=== PATIENT | female | born 2000 | race Caucasian/White ===

== ENCOUNTER 2023-01-11 18:54 | Emergency (ER) | payer OTHER, SELFPAY ==
[2023-01-11 19:04] VITALS: BP 135/84; PULSE 97; RESP 20; TEMP 36.5; O2SAT 100
[2023-01-11 19:50] LABS: Appearance Urine Clear (Clear); Bacteria Urine None Seen /hpf; Bilirubin Urine Negative (Negative); Blood Urine 3+ (Negative); Color Urine Yellow (Yellow); Glucose Urine UA Negative (Negative); Ketones Urine 1+ mg/dL (Negative); Leukocyte Esterase Ur Trace LEU/UL (Negative); Nitrate Urine Negative (Negative); Non Pathogenic Casts 0-2; Protein Urine Negative (Negative); RBC Urine >100 /hpf (0-2); Specific Grav Ur 1.017 (1.001-1.035); Squamous Epithelial Cell Urine Occasional /hpf (Few); Urobilinogen Urine 0.2 mg/dL (<2.0); WBC Urine 0-5 /hpf
[2023-01-11 19:52] LABS: Add Urine Microscopic? YES
[2023-01-11 20:13] LABS: Basophils Percent Auto 0.6 % (0.2-1.2); Eosinophils Percent Auto 0.4 % (0-4.4); Hematocrit 40.5 % (37.0-47.0); Hemoglobin 13.5 g/dL (12.0-15.0); Immature Granulocyte Absolute 0.01 K/mm3 (0.00-0.031); Immature Granulocyte Percent A 0.2 % (0-0.5); Lymphocytes Absolute Auto 1.69 K/mm3 (0.9-3.2); Lymphocytes Percent Auto 34.9 % (18.3-44.2); Mean Corpuscular HGB Conc 33.3 g/dl (32-36); Mean Corpuscular Volume 92.9 fl (80-100); Monocytes Absolute Auto 0.3 K/mm3 (0.1-0.6); Neutrophils Absolute Auto 2.8 K/mm3 (1.3-6.7); Neutrophils Percent Auto 56.9 % (45.5-73.1); Platelet Count Result 198 k/mm3 (150-375); Red Blood Count 4.36 M/mm3 (4.2-5.4); Red Cell Distribution Width 12.8 % (11.5-14.5); White Blood Count 4.8 K/mm3 (4.5-10.0)
[2023-01-11 20:22] LABS: Alanine Aminotransferase 15 U/L (6-35); Albumin Level 5.2 g/dL (3.5-5.1); Alkaline Phosphatase 81 U/L (38-126); Anion Gap 12 mmol/L (8-16); Aspartate Amino Transferase 25 U/L (14-36); Bilirubin,Total 0.7 mg/dL (0.2-1.3); Blood Urea Nitrogen 7 mg/dL (7-17); Calcium 9.6 mg/dL (8.4-10.2); Carbon Dioxide 26 mmol/L (22-30); Chloride 101 mmol/L (98-107); Estimated CRCL calculation 85 ml/min; Estimated Glomerular Filt Rate > 60; Glucose 88 mg/dL (65-110); Potassium 3.5 mmol/L (3.4-5.0); Sodium 139 mmol/L (137-145)
--- NOTE | 2023-01-11 23:42 | ED.FEMALEGU ---
HPI - Female Genitourinary General Chief complaint: Vaginal Bleeding <Jina José PA-C - Last Filed: 01/12/23 01:16> Stated complaint: vaginal bleeding <Jina José PA-C - Last Filed: 01/12/23 01:16> Time Seen by Provider: 01/11/23 23:12 <Jina José PA-C - Last Filed: 01/12/23 01:16> History of Present Illness HPI Narrative: 22-year-old female reports for evaluation for vaginal bleeding for 1 month. Her LMP was 11/26 through 12/02. Patient states 2 days later, she started bleeding again and has not stopped. She reports having to change her tampon every 2 hours at most every 4-6 hours at the least She reports intermittent suprapubic discomfort but states this is not as bad as her normal period cramps. She does report intermittent nausea and 2 episodes of emesis since the onset of bleeding 1 month ago. She also reports intermittent lightheadedness which is unchanged from her baseline secondary to her iron deficiency anemia. She denies syncope, fever, body aches or chills, chest pain or shortness of breath, diarrhea. She is not currently on control. States she was taking control and discontinued it at the beginning of the year due to abdominal cramping. States she was supposed to follow-up with her AGRONOMY TEACHER tomorrow at [facility], however received a phone call stating that they were moving her appointment to 3 weeks from now, therefore she came to the ED. She denies vaginal discharge or concern for STDs. Last bowel movement today was normal. <Jina José PA-C - Last Filed: 01/12/23 01:16> Related Data Allergies/Adverse reactions: Allergies Allergy/AdvReac Type Severity Reaction Status Date / Time No Known Allergies Allergy Verified 01/12/23 01:34 <Jina José PA-C - Last Filed: 01/12/23 01:16> Review of Systems Review of Systems: CONSTITUTIONAL: Denies fever, chills EYES: Denies visual changes, redness, or discharge. ENT: Denies rhinorrhea, congestion, sore throat, or otalgia. CARDIOVASCULAR: Denies chest pain, palpitations, or edema. RESPIRATORY: Denies cough or dyspnea. GASTROINTESTINAL: See HPI GENITOURINARY: See HPI SKIN: Denies rash or itching. MUSCULOSKELETAL: Denies back pain, joint pain, or myalgia. NEUROLOGIC: Denies headache, numbness, dizziness, or weakness. PSYCHIATRIC: Denies anxiety or depression. <Jina José PA-C - Last Filed: 01/12/23 01:16> Exam Narrative: GENERAL: Well-appearing, in no acute distress. Patient resting comfortably in exam bed. She is pleasant and conversational HEAD: Normocephalic EYES: PERRLA ENT: Nares clear. Mucous membranes moist. Oropharynx without tonsillar hypertrophy exudate or other lesions. NECK: Supple. CHEST: No respiratory distress. Clear to auscultation, no adventitious breath sounds. HEART: Regular rate and rhythm. No murmur heard. Normal peripheral pulses. ABDOMEN: Soft, nontender, normal active bowel sounds. No CVA tenderness. : Mild amount of blood in the vaginal vault. No CMT. No lesions, erythema or edema to external genitalia, no vaginal canal or cervix. No adnexal masses or tenderness. EXTREMITIES: Normal range of motion. No edema. SKIN: Warm, dry, no rash. NEURO: No focal deficits. Alert and oriented x3. PSYCH: Normal mood and affect. <Jina José PA-C - Last Filed: 01/12/23 01:16> Course PUBLIC RELATIONS ACCOUNT EXECUTIVE/PA Physician Supervision This is a was performed by both a physician and an APC. I performed all aspects of the MDM as documented w/ the following additions: 22-year-old presenting with dysfunctional vaginal bleeding. Vitals stable. Hemoglobin stable. well-appearing. Discharged with metal spray operator follow-up.All questions answered. Patient in agreement w/ disposition. <Jaquan Mondragon MD - Last Filed: 01/12/23 06:41> Vital Signs Vital signs: Vital Signs Temperature 97.7 F 01/11/23 19:04 Pulse Rate 97 01/11/23 19:04 Respiratory Rate 20
[2023-01-12] VITALS: BP 123/75; PULSE 90; RESP 24; O2SAT 100
[2023-01-12] MEDS: SODIUM CHLORIDE 0.9% IV 1,000 ML 999 ML IV CONT ×2 (00:03→00:04)
[2023-01-12 00:21] LABS: INR 1.1
[2023-01-12 00:22] LABS: Partial Thromboplastin Time 32.6 SECONDS (22.3-36.8)
[2023-01-12 01:00] VITALS: BP 117/77; PULSE 100; RESP 24; O2SAT 100
[2023-01-12 01:18] VITALS: BP 112/73; BP 118/69; PULSE 82; PULSE 85
[2023-01-12 01:19] VITALS: BP 123/84; PULSE 86
== END 2023-01-12 01:30 | disposition home or self-care (01) ==
PROVIDERS: Emergency Medicine; Emergency Provider Physician Assistant; PCP Physician Assistant
DX: N93.8 Other specified abnormal uterine and vaginal bleeding (principal); D50.9 Iron deficiency anemia, unspecified
CPT/HCPCS: 36415; 80053; 81001; 81025; 85025; 85610; 85730; 96360; 99284; J7030

== ENCOUNTER 2023-02-24 16:57 | Emergency (ER) | payer OTHER, SELFPAY ==
--- NOTE | ~2023-02-24 | XR_ITS ---
EXAMINATION: XR toe 2nd RT min 2V INDICATION: Right second toe pain TECHNIQUE: Three views of the right second toe are obtained. COMPARISON: None available FINDINGS: There is an acute, traumatic, closed, oblique intra-articular fracture at the dorsal base o f the second middle phalanx. The fracture appears to involve less than 50% of the articular surface. There is soft tissue swelling of the second toe. No additional fracture is identified. IMPRESSION: 1. Oblique intra-articular fracture at the dorsal base of the second middle phalanx.. Reviewed, dictated and finalized at location F. IMPRESSION: 1. Oblique intra-articular fracture at the dorsal base of the second middle pha lanx..
[2023-02-24 16:59] VITALS: BP 177/70; PULSE 102; RESP 16; TEMP 36.9; O2SAT 99
--- NOTE | 2023-02-24 17:59 | ED.LOWEXIN ---
HPI - Extremity Injury (Lower) General Chief Complaint: Extremity Injury, Lower Stated Complaint: R 2nd toe injury Time Seen by Provider: 02/24/23 17:04 History of Present Illness HPI Narrative: Patient is a 22-year-old female who presents ER with pain to the right second toe. She was taking her dog outside when she reached backwards to grab something and the dog pulled her forward and she stubbed her toe. Toe is swollen and tender. Has pain with walking. No numbness or tingling. No additional concerns. Related Data Allergies Allergy/AdvReac Type Severity Reaction Status Date / Time No Known Allergies Allergy Verified 02/24/23 17:06 Review of Systems Musculoskeletal: Musculoskeletal: Reports arthralgias and Reports joint swelling Neurologic: Denies focal weakness and Denies numbness PMFSH Past Medical History Medical History (Updated 02/24/23 @ 18:03 by Delonte García MD) Healthy female adult Surgical History Surgical History (Updated 02/24/23 @ 18:00 by Delonte García MD) No history of previous surgery Exam Narrative: GENERAL: Well-appearing, well-nourished, and in no acute distress. HEAD: Normocephalic, atraumatic. EXTREMITIES: Right second digit bruised with tenderness over the middle phalanx. SKIN: Warm, dry, no rash. NEURO: Alert and oriented x3. PSYCH: Normal mood and affect. Course Vital Signs Vital signs: Vital Signs Temperature 98.4 F 02/24/23 16:59 Pulse Rate 102 H 02/24/23 16:59 Respiratory Rate 16 02/24/23 16:59 Blood Pressure 177/70 H 02/24/23 16:59 Pulse Oximetry 99 02/24/23 16:59 Temperature 98.4 F 02/24/23 16:59 Pulse Rate 102 H 02/24/23 16:59 Respiratory Rate 16 02/24/23 16:59 Blood Pressure 177/70 H 02/24/23 16:59 Pulse Oximetry 99 02/24/23 16:59 MDM - Extremity Injury (Lower) Imaging Data Radiologist's impression: ITS Impressions Toe X-Ray 02/24/23 17:29 IMPRESSION: 1. Oblique intra-articular fracture at the dorsal base of the second middle phalanx.. Discharge Plan Discharge Clinical Impression: Fracture of toe Patient Disposition: Home, Self-Care Condition: Stable Instructions: Toe Fracture (ED) Additional Instructions: Your primary care physician or orthopedic surgery for further evaluation. Wear your postop shoe for comfort. Take Tylenol for pain. Return to the ER if you suffer additional injury, or you have additional concerns. Follow-up/Referrals: Aury,WILLIAM Cisneros [Primary Care Provider] - 1 Week Matthew Mejia MD [Physician] - 1 Week
[2023-02-24] MEDS: ACETAMINOPHEN 325 MG TABLET 650 MG PO (18:11)
== END 2023-02-24 18:15 | disposition home or self-care (01) ==
PROVIDERS: Emergency Provider Emergency Medicine; PCP Physician Assistant
DX: S92.521A Displaced fracture of middle phalanx of right lesser toe(s), initial encounter for closed fracture (principal); W22.8XXA Striking against or struck by other objects, initial encounter; Y93.K1 Activity, walking an animal
CPT/HCPCS: 73660; 99284; A9270

== ENCOUNTER 2023-03-18 18:09 | Emergency (ER) | payer OTHER, SELFPAY ==
--- NOTE | ~2023-03-18 | XR_ITS ---
EXAMINATION: XR hand RT min 3V INDICATION: Right hand pain TECHNIQUE: Three views of the right hand are obtained. COMPARISON: None available FINDINGS: There is a questionable fracture at the medial base of the fifth metacarpal. No additional suspected fracture is identified. The joint spaces are normal. IMPRESSION: 1. Possible nondisplaced fracture at the medial base of the fifth metacarpal. Recommend correlation f or tenderness at this site. Reviewed, dictated and finalized at location F. IMPRESSION: 1. Possible nondisplaced fracture at the medial base of the fifth metacarpal. R ecommend correlation for tenderness at this site.
[2023-03-18 18:12] VITALS: BP 116/82; PULSE 120; RESP 18; TEMP 36.8; O2SAT 100
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
[2023-03-18] MEDS: ACETAMINOPHEN 325 MG TABLET 650 MG PO (20:29)
[2023-03-18] MEDS: KETOROLAC 30 MG/ML VIAL (*BKC) IM (20:29)
== END 2023-03-18 20:35 | disposition home or self-care (01) ==
LOC: ANHED 20:10
PROVIDERS: Emergency Provider Physician Assistant; PCP Physician Assistant
DX: S62.346A Nondisplaced fracture of base of fifth metacarpal bone, right hand, initial encounter for closed fracture (principal); X50.0XXA Overexertion from strenuous movement or load, initial encounter; F17.290 Nicotine dependence, other tobacco product, uncomplicated
CPT/HCPCS: 29130; 73130; 96372; 99284; A9270; J1885

== ENCOUNTER 2023-04-13 17:28 | Emergency (ER) | payer OTHER, SELFPAY ==
--- NOTE | ~2023-04-13 | US_ITS ---
EXAMINATION: US pelvic complete w TV DATE: 04/13/2023 20:40 INDICATION: OB, threatened miscarriage TECHNIQUE: Multiple transabdominal and endovaginal sonographic images of the pelvis were obtained. COMPARISON: None. FINDINGS: Uterus: 9.3 x 4.6 x 5.2 cm. Retroverted uterus. Endometrial complex measures 10 mm. Right Ovary: 2.8 x 1.2 x 1.96 cm. Vascular flow is present. There is adnexal fluid. 8mm anechoic stru cture without flow, of doubtful clinical significance Left Ovary: 2.1 x 1.1 x 1.3 cm. Vascular flow is present. There is adnexal fluid. There is free fluid in the pelvis. IMPRESSION: Positive test with no intrauterine gestational sac visualized. Findings represent pregnanc y of unknown location. Differential diagnosis includes early normal, failed early, or ectopic pregna ncy. Recommend follow-up serial beta-hCG values. Ultrasound follow-up should be considered as clini glen warranted.. Reviewed, dictated and finalized at location K. ATION SUPERVISOR IMPRESSION: Positive test with no intrauterine gestational sac visualized. Findi ngs represent of unknown location. Differential diagnosis includes e maria elena normal, failed early, or ectopic . Recommend follow-up serial be ta-hCG values. Ultrasound follow-up should be considered as clinically warrant ed..
[2023-04-13 17:30] VITALS: BP 107/70; PULSE 106; RESP 16; TEMP 36.1; O2SAT 100
[2023-04-13 19:15] LABS: Basophils Percent Auto 0.4 % (0.2-1.2); Eosinophils Percent Auto 0.4 % (0-4.4); Immature Granulocyte Absolute 0.02 K/mm3 (0.00-0.031); Immature Granulocyte Percent A 0.3 % (0-0.5); Lymphocytes Absolute Auto 1.24 K/mm3 (0.9-3.2); Lymphocytes Percent Auto 18.4 % (18.3-44.2); Mean Corpuscular HGB Conc 33.3 g/dl (32-36); Mean Corpuscular Hemoglobin 30.3 pg (26-34); Mean Corpuscular Volume 90.9 fl (80-100); Mean Platelet Volume 11.1 fl (7.4-10.4); Monocytes Absolute Auto 0.4 K/mm3 (0.1-0.6); Monocytes Percent Auto 5.5 % (2.6-8.5); Platelet Count Result 196 k/mm3 (150-375); Red Blood Count 4.29 M/mm3 (4.2-5.4); Red Cell Distribution Width 12.2 % (11.5-14.5); White Blood Count 6.7 K/mm3 (4.5-10.0)
[2023-04-13 19:42] LABS: Beta HCG Quantitative 20.03 mIU/ML
--- NOTE | 2023-04-13 19:54 | ED.FEMALEGU ---
HPI - Female Genitourinary General Chief complaint: Vaginal Bleeding Stated complaint: vaginal bleeding, Time Seen by Provider: 04/13/23 18:58 History of Present Illness HPI Narrative: Patient is a 23-year-old female who presents to the emergency department at this afternoon complaining of vaginal bleeding. Patient states that she had a home test that was positive and her last menstrual period was approximately 1 month ago. 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 Patient admits to mild cramping but is currently denying any additional symptoms including any chest pain, shortness of breath, nausea, vomiting, dysuria, hematuria, constipation, diarrhea, melena, hematochezia, fevers or chills. Patient also denies any headaches, dizziness, lightheadedness, blurry visions, focal weakness, numbness and or tingling. There are no other modifying, alleviating, or precipitating factors at this time. Related Data Home Medications Medication Instructions Recorded Confirmed multivitamin with iron 1 tablet PO DAILY 03/02/23 03/25/23 Allergies Allergy/AdvReac Type Severity Reaction Status Date / Time No Known Allergies Allergy Verified 03/25/23 13:17 Review of Systems Review of Systems: All systems are reviewed and are negative unless stated otherwise in the HPI. [facility] Past Medical History Medical History Healthy female adult History of bruising easily Surgical History Surgical History No history of previous surgery Family History Family History Other Arthritis Cancer Mental health disorder Social History Social History Smoking status: Current every day smoker Tobacco type: e-cigarettes/vaping Alcohol intake: never Substance use: current Lack of Transportation: No Lack of Food: Never True Current Housing: I Have Housing Concerned About Future Housing: No Difficulty Paying Gas/Electric Bills: No Difficulty Paying for Meds: Decline to Answer Currently Unemployed: No Education: Decline to Answer Difficulty w/ Childcare or Family Care: No Exam Narrative: General: Alert, awake, afebrile, in no acute distress. HEENT: PERRL, no rhinorrhea, no post nasal drip, oropharynx clear. Neck: Trachea midline, no JVD, no lymphadenopathy. Cardiovascular: Regular rate and rhythm, no murmurs, rubs or gallops, no peripheral edema. Respiratory: Clear to auscultation bilaterally, no tachypnea, no wheezing, no rhonchi, no rubs, no respiratory distress. Abdomen: Soft, nontender, nondistended, no rebound, no guarding, no peritoneal signs. Musculoskeletal: No joint swelling or deformity, normal muscle tone. Skin: No rashes or petechia, no signs of infection. Psychiatric: Alert and oriented, normal behavior and judgment for situation. Neurological: Alert and oriented to person, place, and time. Follows all commands. No focal deficits, speech is clear and fluent. Course Vital Signs Vital signs: Vital Signs Temperature 97.0 F L 04/13/23 17:30 Pulse Rate 106 H 04/13/23 17:30 Respiratory Rate 16 04/13/23 17:30 Blood Pressure 107/70 04/13/23 17:30 Pulse Oximetry 100 04/13/23 17:30 Oxygen Delivery Room Air 04/13/23 17:30 Temperature 97.0 F L 04/13/23 17:30 Pulse Rate 64 04/13/23 21:34 Respiratory Rate 20 04/13/23 21:34 Blood Pressure 104/74 04/13/23 21:34 Pulse Oximetry 98 04/13/23 21:34 Oxygen Delivery Room Air 04/13/23 17:30 MDM - Female Genitourinary MDM Narrative Medical decision making narrative: The patient was evaluated by myself in the emergency department
[2023-04-13 21:34] VITALS: BP 104/74; PULSE 64; RESP 20; O2SAT 98
== END 2023-04-13 21:34 | disposition home or self-care (01) ==
PROVIDERS: Emergency Medicine; Emergency Provider Emergency Medicine; PCP Physician Assistant
DX: O20.0 Threatened abortion (principal); Z3A.00 Weeks of gestation of pregnancy not specified
CPT/HCPCS: 36415; 76830; 76856; 84702; 85025; 85461; 86850; 86900; 86901; 99284